=== PATIENT | female | born 1960 | race Caucasian/White ===

== ENCOUNTER 2017-11-24 20:08 | Emergency (ER) | payer OTHER ==
[2017-11-24 23:33] VITALS: BP 138/84; PULSE 62; RESP 18; TEMP 97.7; O2SAT 100
--- NOTE | 2017-11-25 00:21 | ED PDOC ---
Arrival/HPI - General Chief Complaint: Lower Extremity Problem/Injury Time Seen by Provider: 11/24/17 20:43 Historian: Patient - History of Present Illness Narrative History of Present Illness (Text): 11/25/17 00:28 57-year-old female presents today with left knee pain and right great toe pain status post injury. Patient states she tripped and fell landing on the left knee. Patient complaining of pain over the anterior aspect of the knee. Patient complaining of pain with range of motion of the knee. No medications taken for pain at home. Incident occurred prior to arrival. Patient denies hitting her head. No headache dizziness or weakness. No other complaints Past Medical History - Provider Review Nursing Documentation Reviewed: Yes - Travel History Have you recently traveled outside [place] w/in the past 3 mons?: No - Infectious Disease Hx of Infectious Diseases: None - Tetanus Immunization Tetanus Immunization: Unknown - Cardiac Hx Hypertension: Yes - Pulmonary Hx Respiratory Disorders: Yes Hx Asthma: Yes Other/Comment: flu-like symptoms - Neurological Hx Neurological Disorder: No - HEENT Hx HEENT Disorder: No - Renal Hx Renal Disorder: No - Endocrine/Metabolic Hx Endocrine Disorders: No - Hematological/Oncological Hx Blood Disorders: No - Integumentary Hx Dermatological Disorder: No - Musculoskeletal/Rheumatological Hx Falls: No - Gastrointestinal Hx Gastrointestinal Disorders: Yes Hx Diverticulitis: Yes - Genitourinary/Gynecological Hx Genitourinary Disorders: No - Psychiatric Hx Substance Use: No - Surgical History Hx Coronary Stent: Yes (1) - Anesthesia Hx Anesthesia: Yes Family/Social History - Physician Review Nursing Documentation Reviewed: Yes Family/Social History: Unknown Family HX Smoking Status: Never Smoked Hx Alcohol Use: No Hx Substance Use: No Allergies/Home Meds Allergies/Adverse Reactions: Allergies No Known Allergies Allergy (Verified 10/17/17 21:03) Home Medications: Home Meds Medication Instructions Recorded Confirmed Aspirin 81 mg PO DAILY 09/25/17 11/24/17 Atorvastatin [Lipitor] 40 mg PO HS 09/25/17 11/24/17 Lisinopril [Zestril] 2.5 mg PO DAILY 09/25/17 11/24/17 Metoprolol Tartrate 25 mg PO BID 09/25/17 11/24/17 Ticagrelor [Brilinta] 90 mg PO BID 09/25/17 11/24/17 Albuterol HFA [Ventolin HFA 90 2 puff INH Q6 PRN 10/18/17 11/24/17 mcg/actuation (8 g)] Review of Systems - Review of Systems Constitutional: absent: Fatigue, Fevers Respiratory: absent: SOB, Cough Cardiovascular: absent: Chest Pain, Palpitations Gastrointestinal: absent: Abdominal Pain, Nausea, Vomiting Musculoskeletal: Arthralgias. absent: Back Pain, Neck Pain Skin: absent: Rash, Pruritis Neurological: absent: Headache, Dizziness Psychiatric: absent: Anxiety, Depression Physical Exam Vital Signs Reviewed: Yes Vital Signs Temp Pulse Resp BP Pulse Ox 11/24/17 23:32 97.7 F 62 18 138/84 100 Temperature: Afebrile Blood Pressure: Normal Pulse: Regular Respiratory Rate: Normal Appearance: Positive for: Well-Appearing, Non-Toxic, Comfortable Pain Distress: None Mental Status: Positive for: Alert and Oriented X 3 - Systems Exam Head: Present: Atraumatic Neck: Present: Normal Range of Motion Respiratory/Chest: Present: Clear to Auscultation Cardiovascular: Present: Regular Rate and Rhythm Upper Extremity: Present: Normal Inspection, Normal ROM Lower Extremity: Present: Normal ROM, Tenderness (left knee; + ttp over anterior aspect of knee; full rom of knee. minimal swelling noted anterior aspect of knee; sensation and distal pulses intact; cap refill <2. ), Swelling , Other (right great toe; + ttp over anterior aspect of toe; full rom; no edema , no erythema; no ecchymosis. sensation and distal pulses intact. ) Neurological: Present: GCS=15, Speech Normal Skin: Present: Warm, Dry, Normal Color. No: Rashes Psychiatric: Present: Alert, Oriented x 3 Medical Decision Making ED Course and Treatment: 11/25/17 00:35 Patient nontoxic well-appearing in no distress with stable vital signs X-rays of the knee no fracture xray right great toe; no fracture tramadol po Patient placed in knee immobilizer. pt refused Crutches given for ambulation I discussed all results with patient advised to followup with the orthopedist for the next 2 days. Return if symptoms worsen persist or new symptoms develop i advised the patient that although the xrays show no fracture; there is still a possibility for ligamentous or tendon injury the patient must see the orthopedist for further evaluation. Patient verbalizes understanding of discharge instructions and need for immediate followup. all aspects of this case were discussed the attending of record. Impression: knee pain, contusion, toe tylenol every 4 hours as needed for pain tramadol; every 6 hours as needed for moderate to severe pain; may cause drowsiness. Rest, ice, compression, elevation Followup with the orthopedist within the next 2 days Followup with primary care physician within the next 2 days Return if symptoms worsen persist or if new symptoms develop - RAD Interpretation Radiology Orders: 11/24/17 21:31 KNEE WITH PATELLA LEFT 3 VIEW [RAD] Stat 11/24/17 21:32 FOOT RIGHT GREAT TOE ROUTINE [RAD] Stat - Medication Orders Current Medication Orders: Discontinued Medications Tramadol HCl (Ultram) 50 mg PO STAT STA Stop: 11/24/17 22:33 Last Admin: 11/24/17 22:50 Dose: 50 mg MAR Pain Assessment Document 11/24/17 22:50 ADELINA (Rec: 11/24/17 22:50 ADELINA [id number]) Pain Reassessment Is this a pain reassessment? No Disposition/Present on Arrival - Present on Arrival Any Indicators Present on Arrival: No History of DVT/PE: No History of Uncontrolled Diabetes: No Urinary Catheter: No History of Decub. Ulcer: No History Surgical Site Infection Following: None - Disposition Have Diagnosis and Disposition been Completed?: Yes Diagnosis: Knee pain, Contusion, toe Disposition: HOME/ ROUTINE Disposition Time: 00:16 Patient Plan: Discharge Condition: GOOD Discharge Instructions (ExitCare): Knee Pain (DC), Toe Injury (DC) Additional Instructions: tylenol every 4 hours as needed for pain tramadol; 1 tablet every 6 hours as needed for moderate to severe pain; may cause drowsiness Rest, ice, compression, elevation Use crutches for ambulation Followup with the orthopedist within the next 2 days Followup with primary care physician within the next 2 days Return if symptoms worsen persist or if new symptoms develop Prescriptions: traMADol [Ultram] 50 mg PO Q6H PRN #6 tab PRN Reason: moderate to severe pain Referrals: Dae Castro MD [Primary Care Provider] - Follow up with primary Raleigh Wilson DO [Staff Provider] - Follow up with primary Forms: [facility] (Congolese), WORK NOTE
--- NOTE | 2017-11-25 08:43 | RAD ---
PROCEDURE: Left knee dated 11/24/2017 HISTORY: Pain. COMPARISON: None. FINDINGS: BONES: No evidence of acute displaced fracture nor dislocation. Osseous structures intact. No obvious cortical destructive changes. JOINTS: Joint spaces preserved. No significant osteoarthritis. JOINT EFFUSION: None. OTHER FINDINGS: None. IMPRESSION: No evidence of acute displaced fracture nor dislocation.
--- NOTE | 2017-11-25 08:47 | RAD ---
PROCEDURE: Radiographs of the right great toe. TECHNIQUE:: AP radiograph of the right foot, with oblique and lateral view of the right great toe. COMPARISON: None. FINDINGS: BONES: No evidence of acute displaced fracture nor dislocation. The osseous structures intact. . Small posterior and tiny plantar surface calcaneal enthesophyte formation. JOINTS: Slight hammertoe deformity right 2nd and 3rd toes. Joint spaces relatively preserved. No significant osteoarthritis SOFT TISSUES: Normal. OTHER FINDINGS: None. IMPRESSION: No definitive radiographic evidence of acute displaced fracture nor dislocation. If symptoms persist or occult fracture suspected clinically recommend repeat radiographs in 7-10 days as most fractures should become radiographically evident in this timeframe.
== END 2017-11-25 00:21 | disposition home or self-care (01) ==
LOC: ED 20:08
DX: M25.562 Pain in left knee (principal); S90.111A Contusion of right great toe without damage to nail, initial encounter; W01.0XXA Fall on same level from slipping, tripping and stumbling without subsequent striking against object, initial encounter; I10 Essential (primary) hypertension

== ENCOUNTER 2018-11-25 20:11 | Observation (INO) | payer OTHER ==
--- NOTE | 2018-11-25 20:34 | ED PDOC ---
Arrival/HPI - General Chief Complaint: Chest Pain Time Seen by Provider: 11/25/18 20:15 Historian: Patient - History of Present Illness Narrative History of Present Illness (Text): 11/25/18 20:33 58 year old female, whose past medical history includes previous OH s/p stents, HTN and hyperlipidemia presents to the emergency department complaining of left- sided chest pain that radiates down to the left arm and left hand that began yesterday. Patient describes the chest pain as a dull-like sensation and describes the arm pain as a "funny-feeling". Patient reports she last took her Aspirin at 3PM. Patient denies any history of fall or trauma. Patient is not a smoker. Patient denies any fever, chills, shortness of breath, nausea, vomiting, diarrhea, urinary symptoms, back pain, neck pain, headache, dizziness, or any other complaints. PMD: Erik Torres Time/Duration: 24 hours Symptom Onset: Sudden Symptom Course: Unchanged Activities at Onset: Light Context: Home Past Medical History - Provider Review Nursing Documentation Reviewed: Yes - Infectious Disease Hx of Infectious Diseases: None - Tetanus Immunization Tetanus Immunization: Unknown - Cardiac Hx Cardiac Disorders: Yes Hx OH: Yes Hx Hypertension: Yes - Pulmonary Hx Respiratory Disorders: Yes Hx Asthma: Yes - Neurological Hx Neurological Disorder: No - HEENT Hx HEENT Disorder: No - Renal Hx Renal Disorder: No - Endocrine/Metabolic Hx Endocrine Disorders: No - Hematological/Oncological Hx Blood Disorders: No - Integumentary Hx Dermatological Disorder: No - Musculoskeletal/Rheumatological Hx Musculoskeletal Disorders: No - Gastrointestinal Hx Gastrointestinal Disorders: Yes Hx Diverticulitis: Yes - Genitourinary/Gynecological Hx Genitourinary Disorders: No - Psychiatric Hx Psychophysiologic Disorder: No Hx Substance Use: No - Surgical History Hx Coronary Stent: Yes (1) - Anesthesia Hx Anesthesia: Yes Hx Anesthesia Reactions: No Family/Social History - Physician Review Nursing Documentation Reviewed: Yes Family/Social History: No Known Family HX Smoking Status: Never Smoked Hx Alcohol Use: Yes Hx Substance Use: No Allergies/Home Meds Allergies/Adverse Reactions: Allergies No Known Allergies Allergy (Verified 11/25/18 20:26) Home Medications: Home Meds Medication Instructions Recorded Confirmed Aspirin 81 mg PO DAILY 09/25/17 11/25/18 Lisinopril [Zestril] 2.5 mg PO DAILY 09/25/17 11/25/18 Metoprolol Tartrate 25 mg PO BID 09/25/17 11/25/18 Review of Systems - Physician Review All systems were reviewed & negative as marked: Yes - Review of Systems Constitutional: absent: Fevers, Other (chills) Respiratory: absent: SOB Cardiovascular: Chest Pain (left-sided ) Gastrointestinal: absent: Diarrhea, Nausea, Vomiting Genitourinary Female: absent: Dysuria, Frequency, Hematuria Musculoskeletal: Other (left-sided arm pain radiates to left hand). absent: Back Pain, Neck Pain Neurological: absent: Headache, Dizziness Physical Exam Vital Signs Reviewed: Yes Vital Signs Temp Pulse Resp BP Pulse Ox 11/25/18 20:23 98.1 F 94 H 19 117/83 99 Temperature: Afebrile Blood Pressure: Normal Pulse: Regular Respiratory Rate: Normal Appearance: Positive for: Well-Appearing, Non-Toxic, Comfortable Pain Distress: None Mental Status: Positive for: Alert and Oriented X 3 - Systems Exam Head: Present: Atraumatic, Normocephalic Pupils: Present: PERRL Extroacular Muscles: Present: EOMI Conjunctiva: Present: Normal Mouth: Present: Moist Mucous Membranes Neck: Present: Normal Range of Motion Respiratory/Chest: Present: Clear to Auscultation, Good Air Exchange. No: Respiratory Distress, Accessory Muscle Use Cardiovascular: Present: Regular Rate and Rhythm, Normal S1, S2. No: Murmurs Abdomen: No: Tenderness, Distention, Peritoneal Signs Back: Present: Normal Inspection Upper Extremity: Present: Normal Inspection. No: Cyanosis, Edema Lower Extremity: Present: Normal Inspection. No: Edema Neurological: Present: GCS=15, Speech Normal Skin: Present: Warm, Dry, Normal Color. No: Rashes Psychiatric: Present: Alert, Oriented x 3, Normal Insight, Normal Concentration Medical Decision Making ED Course and Treatment: kayla alejandro acs 11/25/18 20:33 Impression: 58 year old female presents complaining of dull left-sided chest pain that radiates down to the left arm and left arm. Patient describes the pain as a "funny feeling". Plan: -- EKG -- Labs -- Chest X-ray -- Urinalysis -- Reassess and disposition Prior Visits: Notes and results from previous visits were reviewed. Progress Notes: EKG shows NSR at [address]/T wave changes. Interpreted by me. CXR Impression: As read by me, No active disease. 11/25/18 22:19 Case discussed with nurses medical assistants phlebotomists and Dr. Castellanos who is aware and agrees with the plan. Accepts patient into hospitalist service. 11/26/18 01:24 h/ o of cad. accepted by dr castellanos (admits for harry torres). - Lab Interpretations I have reviewed the lab results: Yes - RAD Interpretation Radiology Orders: 11/25/18 20:32 CHEST PORTABLE [RAD] Stat Manager Engine: Radiologist - EKG Interpretation Interpreted by ED Physician: Yes Type: 12 lead EKG - Scribe Statement The provider has reviewed the documentation as recorded by the Jorge Luis Provider Scribe Attestation: All medical record entries made by the Audieibnehemias were at my direction and personally dictated by me. I have reviewed the chart and agree that the record accurately reflects my personal performance of the history, physical exam, medical decision making, and the department course for this patient. I have also personally directed, reviewed, and agree with the discharge instructions and disposition. Disposition/Present on Arrival - Present on Arrival Any Indicators Present on Arrival: No History of DVT/PE: No History of Uncontrolled Diabetes: No Urinary Catheter: No History of Decub. Ulcer: No History Surgical Site Infection Following: None - Disposition Have Diagnosis and Disposition been Completed?: Yes Diagnosis: Chest pain Disposition: HOSPITALIZED Disposition Time: 20:00 Condition: STABLE
[2018-11-25 20:46] LABS: BASO # 0.04 K/mm3 (0.0-2.0); BASO % 0.3 % (0.0-3.0); EOS # 0.8 (0.0-0.7); EOS % 6.5 % (1.5-5.0); HEMOGLOBIN 13.2 g/dL (12.0-16.0); LYMPH # 4.9 (1.2-3.4); LYMPH % 40.1 % (22.0-35.0); MEAN CELL VOLUME 89.9 fl (80.0-105.0); MEAN CORPUSCULAR HEMOGLOBIN 31.1 pg (25.0-35.0); MEAN CORPUSCULAR HGB CONC 34.6 g/dl (31.0-37.0); RBC 4.25 10^6/uL (3.5-6.1); RED CELL DISTRIBUTION WIDTH 16.5 % (11.5-14.5); WHITE BLOOD COUNT 12.3 10^3/uL (4.5-11.0)
[2018-11-25 20:48] VITALS: BMI 36.3
[2018-11-25 20:55] LABS: INR 1.01; PARTIAL THROMBOPLASTIN TIME 27.5 Seconds (26.9-38.3); PROTHROMBIN TIME 11.2 SECONDS (9.4-12.5)
[2018-11-25 22:59] LABS: ALB/GLOB RATIO 1.4 (1.1-1.8); ALBUMIN 4.2 g/dL (3.0-4.8); ALT/SGPT 31 U/L (7-56); AST/SGOT 47 U/L (14-36); BLOOD UREA NITROGEN 13 mg/dL (7-21); CALCIUM 9.7 mg/dL (8.4-10.5); GFR NON-AFRICAN AMERICAN > 60
[2018-11-25 23:14] LABS: TROPONIN I < 0.01 ng/mL
[2018-11-25 23:35] LABS: URINE BILIRUBIN NEGATIVE (NEGATIVE); URINE BLOOD NEGATIVE (NEGATIVE); URINE GLUCOSE (UA) NEGATIVE (NEGATIVE); URINE LEUKOCYTE ESTERASE NEGATIVE Leu/uL (NEGATIVE); URINE PROTEIN NEGATIVE mg/dL (<30 mg/dL); URINE UROBILINOGEN 0.2 E.U./dL (<1 E.U./dL)
[2018-11-25 23:37] LABS: URINE APPEARANCE CLEAR (CLEAR); URINE COLOR YELLOW (YELLOW)
--- NOTE | 2018-11-26 00:25 | CP.PCM.HP ---
<Elizabeth Martínez - Last Filed: 11/26/18 02:05> History of Present Illness - History of Present Illness History of Present Illness: PGY1 History and Physical Exam Note for Dr. Castellanos Patient is a 58-year-old F with PMH significant for previous LA s/p stents CAD, HTN and hyperlipidemia who presents to [facility] with a cc of chest pain. Patient says the pain started while she was at work Friday evening and that it lasted 10 minutes. Patient localized the pain to her left ARM and also localized to her left chest. Patient qualifies the pain as "dull" and rates the pain as 9/10. Patient denies provoking/alleviating factors. Patient took her daily ASA 81mg x2 doses earlier today. Patient currently denies chest pain. Patient otherwise denies headache, dizziness, blurred vision, abdominal pain, shortness of breath, numbness/tingling in extremities, dysuria, hematuria, diarrhea, and/or fever/chills. PMH: previous LA s/p stents CAD, HTN and hyperlipidemia, Asthma PSH: cath with stent placement, hysterectomy Family Hx: Unknown Social Hx: Patient denies ETOH, tobacco use, and/or recreational drug use Medications: Plavix 75mg po daily, metoprolol 25mg po daily, ASA 81mg po daily, lisinopril 10mg po daily, Atorvastatin, Albuterol inhaler PRN Allergies: NKDA PMD: Dr. Chavez Castro Present on Admission - Present on Admission Any Indicators Present on Admission: No History of DVT/PE: No History of Uncontrolled Diabetes: No Urinary Catheter: No Decubitus Ulcer Present: No Review of Systems - Review of Systems All systems: reviewed and no additional remarkable complaints except (as per HPI) Past Patient History - Infectious Disease Hx of Infectious Diseases: None - Tetanus Immunizations Tetanus Immunization: Unknown - Past Medical History & Family History Past Medical History?: Yes - Past Social History Smoking Status: Never Smoked - CARDIAC Hx Cardiac Disorders: Yes Hx Heart Attack: Yes Hx Hypertension: Yes - PULMONARY Hx Respiratory Disorders: Yes Hx Asthma: Yes - NEUROLOGICAL Hx Neurological Disorder: No - HEENT Hx HEENT Problems: No - RENAL Hx Chronic Kidney Disease: No - ENDOCRINE/METABOLIC Hx Endocrine Disorders: No - HEMATOLOGICAL/ONCOLOGICAL Hx Blood Disorders: No - INTEGUMENTARY Hx Dermatological Problems: No - MUSCULOSKELETAL/RHEUMATOLOGICAL Hx Musculoskeletal Disorders: No - GASTROINTESTINAL Hx Gastrointestinal Disorders: Yes Hx Diverticulitis: Yes - GENITOURINARY/GYNECOLOGICAL Hx Genitourinary Disorders: No - PSYCHIATRIC Hx Psychophysiologic Disorder: No Hx Substance Use: No - SURGICAL HISTORY Hx Coronary Stent: Yes (1) - ANESTHESIA Hx Anesthesia: Yes Hx Anesthesia Reactions: No Meds Allergies/Adverse Reactions: Allergies Allergy/AdvReac Type Severity Reaction Status Date / Time No Known Allergies Allergy Verified 11/26/18 11:39 Physical Exam - Constitutional Appears: Non-toxic, No Acute Distress - Head Exam Head Exam: ATRAUMATIC, NORMAL INSPECTION, NORMOCEPHALIC - Eye Exam Eye Exam: EOMI, Normal appearance, PERRL Pupil Exam: NORMAL ACCOMODATION - ENT Exam ENT Exam: Mucous Membranes Moist, Normal Exam - Neck Exam Neck exam: Positive for: Normal Inspection - Respiratory Exam Respiratory Exam: Clear to Auscultation Bilateral, NORMAL BREATHING PATTERN. absent: Accessory Muscle Use, Chest Wall Tenderness, Prolonged Expiratory Phase, Rales, Rhonchi, Wheezes, Respiratory Distress, Stridor - Cardiovascular Exam Cardiovascular Exam: REGULAR RHYTHM, +S1, +S2. absent: Bradycardia, Diastolic murmur, Gallop, Irregular Rhythm, JVD, Rubs, +S4, Systolic Murmur - GI/Abdominal Exam GI & Abdominal Exam: Normal Bowel Sounds, Soft. absent: Tenderness - Extremities Exam Extremities exam: Positive for: full ROM, normal capillary refill, normal inspection. Negative for: calf tenderness, pedal edema, tenderness - Back Exam Back exam: NORMAL INSPECTION - Neurological Exam Neurological exam: Alert, CN II-XII Intact, Oriented x3 - Psychiatric Exam Psychiatric exam: Normal Affect, Normal Mood - Skin Skin Exam: Dry, Intact, Normal Color, Warm Results - Vital Signs Recent Vital Signs: Last Vital Signs Temp 98.1 F 11/25/18 20:23 Pulse 94 H 11/25/18 20:23 Resp 19 11/25/18 20:23 BP 117/83 11/25/18 20:23 Pulse Ox 99 11/25/18 20:23 - Labs Result Diagrams: 11/25/18 20:36 11/25/18 22:00 Labs: Laboratory Results - last 24 hr 11/25/18 11/25/18 11/25/18 20:36 20:36 22:00 WBC 12.3 H RBC 4.25 Hgb 13.2 Hct 38.2 MCV 89.9 MCH 31.1 MCHC 34.6 RDW 16.5 H Plt Count 271 MPV 11.0 Neut % (Auto) 45.1 L Lymph % (Auto) 40.1 H [place] % (Auto) 8.0 H Eos % (Auto) 6.5 H Baso % (Auto) 0.3 Lymph # (Auto) 4.9 H [place] # (Auto) 1.0 H Eos # (Auto) 0.8 H Baso # (Auto) 0.04 Absolute Neuts (auto) 5.54 PT 11.2 INR 1.01 APTT 27.5 Sodium 139 Potassium 4.0 Chloride 108 H Carbon Dioxide 23 Anion Gap 12 BUN 13 Creatinine 0.6 L Est GFR ( Amer) > 60 Est GFR (Non-Af Amer) > 60 Random Glucose 88 Calcium 9.7 Magnesium 1.8 Total Bilirubin 1.5 H AST 47 H D ALT 31 Alkaline Phosphatase 82 Lactate Dehydrogenase 549 Total Creatine Kinase 124 Troponin I < 0.01 Total Protein 7.4 Albumin 4.2 Globulin 3.1 Albumin/Globulin Ratio 1.4 Urine Color Urine Appearance Urine pH Ur Specific [place] Urine Protein Urine Glucose (UA) Urine Ketones Urine Blood Urine Nitrate Urine Bilirubin Urine Urobilinogen Ur Leukocyte Esterase 11/25/18 23:15 WBC RBC Hgb Hct MCV MCH MCHC RDW Plt Count MPV Neut % (Auto) Lymph % (Auto) [place] % (Auto) Eos % (Auto) Baso % (Auto) Lymph # (Auto) [place] # (Auto) Eos # (Auto) Baso # (Auto) Absolute Neuts (auto) PT INR APTT Sodium Potassium Chloride Carbon Dioxide Anion Gap BUN Creatinine Est GFR ( Amer) Est GFR (Non-Af Amer) Random Glucose Calcium Magnesium Total Bilirubin AST ALT Alkaline Phosphatase Lactate Dehydrogenase Total Creatine Kinase Troponin I Total Protein Albumin Globulin Albumin/Globulin Ratio Urine Color Yellow Urine Appearance Clear Urine pH 6.0 Ur Specific [place] 1.010 Urine Protein Negative Urine Glucose (UA) Negative Urine Ketones Negative Urine Blood Negative Urine Nitrate Negative Urine Bilirubin Negative Urine Urobilinogen 0.2 Ur Leukocyte Esterase Negative Assessment & Plan - Assessment and Plan (Free Text) Assessment: Chest Pain in the setting of pr Rule-Out ACS - Troponin I negative - EKG shows NSR at [address]/T wave changes - Repeat Troponin Q6 x2 - Repeat EKG Q6 x2 - Cardiology consulted (Dr. Aragon); recommendations appreciated - F/U CXR official report - F/U lipid panel, TSH, CMP, Mg, Phos in AM - Continue home meds - Nitro SL PRN max x3 doses - Toradol 15mg IVP x 1 dose - Monitor in telemetry Mild leukocytosis - WBC 12.3 - afebrile - likely reactive - monitor CBC in AM Mild Transaminitis - AST 47 - Avoid hepatotoxic agents - Monitor CMP in AM PPx: - DVT: Lovenox 40 SC daily - GI: Protonix 40mg PO daily Discussed with Dr. Castellanos <Brice Castellanos - Last Filed: 11/26/18 19:29> Results - Vital Signs Recent Vital Signs: Last Vital Signs Temp 98.3 F 11/26/18 13:37 Pulse 85 11/26/18 18:00 Resp 18 11/26/18 14:00 BP 116/44 L 11/26/18 13:37 Pulse Ox 98 11/26/18 13:37 - Labs Result Diagrams: 11/26/18 04:00 11/26/18 04:00 Labs: Laboratory Results - last 24 hr 11/25/18 11/25/18 11/25/18 20:36 20:36 22:00 WBC 12.3 H RBC 4.25 Hgb 13.2 Hct 38.2 MCV 89.9 MCH 31.1 MCHC 34.6 RDW 16.5 H Plt Count 271 MPV 11.0 Neut % (Auto) 45.1 L Lymph % (Auto) 40.1 H [place] % (Auto) 8.0 H Eos % (Auto) 6.5 H Baso % (Auto) 0.3 Lymph # (Auto) 4.9 H [place] # (Auto) 1.0 H Eos # (Auto) 0.8 H Baso # (Auto) 0.04 Absolute Neuts (auto) 5.54 PT 11.2 INR 1.01 APTT 27.5 Sodium 139 Potassium 4.0 Chloride 108 H Carbon Dioxide 23 Anion Gap 12 BUN 13 Creatinine 0.6 L Est GFR ( Amer) > 60 Est GFR (Non-Af Amer) > 60 Random Glucose 88 Calcium 9.7 Phosphorus Magnesium 1.8 Total Bilirubin 1.5 H AST 47 H D ALT 31 Alkaline Phosphatase 82 Lactate Dehydrogenase 549 Total Creatine Kinase 124 Troponin I < 0.01 Total Protein 7.4 Albumin 4.2 Globulin 3.1 Albumin/Globulin Ratio 1.4 Triglycerides Cholesterol LDL Cholesterol Direct HDL Cholesterol TSH 3rd Generation Urine Color Urine Appearance Urine pH Ur Specific [place] Urine Protein Urine Glucose (UA) Urine Ketones Urine Blood Urine Nitrate Urine Bilirubin Urine Urobilinogen Ur Leukocyte Esterase 11/25/18 11/25/18 11/26/18 22:00 23:15 04:00 WBC RBC Hgb Hct MCV MCH MCHC RDW Plt Count MPV Neut % (Auto) Lymph % (Auto) [place] % (Auto) Eos % (Auto) Baso % (Auto) Lymph # (Auto) [place] # (Auto) Eos # (Auto) Baso # (Auto) Absolute Neuts (auto) PT INR APTT Sodium 141 Potassium 3.9 Chloride 107 Carbon Dioxide 24 Anion Gap 14 BUN 13 Creatinine 0.7 Est GFR ( Amer) > 60 Est GFR (Non-Af Amer) > 60 Random Glucose 90 Calcium 9.2 Phosphorus 4.4 Magnesium 1.8 Total Bilirubin 1.4 H AST 32 ALT 27 Alkaline Phosphatase 71 Lactate Dehydrogenase Total Creatine Kinase Troponin I < 0.01 Total Protein 6.8 Albumin 3.9 Globulin 2.9 Albumin/Globulin Ratio 1.4 Triglycerides 108 Cholesterol 143 LDL Cholesterol Direct 70 HDL Cholesterol 53 TSH 3rd Generation 1.31 Urine Color Yellow Urine Appearance Clear Urine pH 6.0 Ur Specific [place] 1.010 Urine Protein Negative Urine Glucose (UA) Negative Urine Ketones Negative Urine Blood Negative Urine Nitrate Negative Urine Bilirubin Negative Urine Urobilinogen 0.2 Ur Leukocyte Esterase Negative 11/26/18 11/26/18 04:00 09:45 WBC 9.7 D RBC 4.17 Hgb 12.8 Hct 37.1 MCV 89.0 MCH 30.7 MCHC 34.5 RDW 16.0 H Plt Count 251 MPV 11.1 H Neut % (Auto) 40.1 L Lymph % (Auto) 43.7 H [place] % (Auto) 7.9 H Eos % (Auto) 8.0 H Baso % (Auto) 0.3 Lymph # (Auto) 4.2 H [place] # (Auto) 0.8 H Eos # (Auto) 0.8 H Baso # (Auto) 0.03 Absolute Neuts (auto) 3.89 PT INR APTT Sodium Potassium Chloride Carbon Dioxide Anion Gap BUN Creatinine Est GFR ( Amer) Est GFR (Non-Af Amer) Random Glucose Calcium Phosphorus Magnesium Total Bilirubin AST ALT Alkaline Phosphatase Lactate Dehydrogenase Total Creatine Kinase Troponin I < 0.01 Total Protein Albumin Globulin Albumin/Globulin Ratio Triglycerides Cholesterol LDL Cholesterol Direct HDL Cholesterol TSH 3rd Generation Urine Color Urine Appearance Urine pH Ur Specific [place] Urine Protein Urine Glucose (UA) Urine Ketones Urine Blood Urine Nitrate Urine Bilirubin Urine Urobilinogen Ur Leukocyte Esterase Attending/Attestation - Attestation I have personally seen and examined this patient.: Yes I have fully participated in the care of the patient.: Yes I have reviewed all pertinent clinical information: Yes Notes (Text): 11/26/18 19:29 Seen and examined. Discussed with resident. A&P as above
[2018-11-26 04:26] LABS: LDL CHOLESTEROL 70 mg/dL (0-129); TROPONIN I < 0.01 ng/mL
[2018-11-26 04:28] LABS: ALB/GLOB RATIO 1.4 (1.1-1.8); ALBUMIN 3.9 g/dL (3.0-4.8); ALT/SGPT 27 U/L (7-56); AST/SGOT 32 U/L (14-36); BLOOD UREA NITROGEN 13 mg/dL (7-21); CALCIUM 9.2 mg/dL (8.4-10.5); GFR NON-AFRICAN AMERICAN > 60; HDL CHOLESTEROL 53 mg/dL (29-60)
[2018-11-26 04:41] LABS: BASO # 0.03 K/mm3 (0.0-2.0); BASO % 0.3 % (0.0-3.0); EOS # 0.8 (0.0-0.7); HEMOGLOBIN 12.8 g/dL (12.0-16.0); LYMPH # 4.2 (1.2-3.4); LYMPH % 43.7 % (22.0-35.0); MEAN CORPUSCULAR HEMOGLOBIN 30.7 pg (25.0-35.0); MEAN CORPUSCULAR HGB CONC 34.5 g/dl (31.0-37.0); MEAN PLATELET VOLUME 11.1 fl (7.0-11.0); MONO # 0.8 (0.1-0.6); MONO % 7.9 % (1.0-6.0); RBC 4.17 10^6/uL (3.5-6.1); WHITE BLOOD COUNT 9.7 10^3/uL (4.5-11.0)
[2018-11-26] MEDS: Pantoprazole 40 mg EC Tab PO SCH ×2 (06:50→09:51)
--- NOTE | 2018-11-26 09:23 | CARD ---
APPROVED REPORT Date of service: 11/26/2018 EKG Measurement Heart [id number] <Conclusion> Normal sinus rhythm Normal ECG
--- NOTE | 2018-11-26 09:32 | CARD ---
APPROVED REPORT Date of service: 11/25/2018 EKG Measurement Heart [id number] <Conclusion> Normal sinus rhythm Normal ECG
[2018-11-26] MEDS ORDERED: Enoxaparin 40 mg Syringe SC SCH (10:00)
--- NOTE | 2018-11-26 12:19 | RAD ---
Date of service: 11/25/2018 HISTORY: cp COMPARISON: No prior. TECHNIQUE: 1 view obtained. FINDINGS: LUNGS: No active pulmonary disease. PLEURA: No significant pleural effusion identified, no pneumothorax apparent. CARDIOVASCULAR: No aortic atherosclerotic calcification present. Normal cardiac size. No pulmonary vascular congestion. OSSEOUS STRUCTURES: No significant abnormalities. VISUALIZED UPPER ABDOMEN: Normal. OTHER FINDINGS: None. IMPRESSION: No active disease.
[2018-11-26] MEDS ORDERED: MethylPREDNISolone 40 mg Vial IVP STA (12:26)
--- NOTE | 2018-11-26 14:09 | CON ---
DATE OF CONSULTATION: 11/26/2018 CARDIOLOGY CONSULTATION HISTORY: The patient is a 58-year-old woman, who presents with substernal chest discomfort with radiation down the left arm. The patient's past medical history is notable for hypertension, hypercholesterolemia. In addition, she was treated with two stents in the past at [facility]. Her past medical history includes asthma, for which she has taken bronchodilators. She was given Plavix in the emergency room, and she has developed (wield) in her arm and behind her neck. No diabetes mellitus noted. SOCIAL HISTORY: The patient does not smoke. REVIEW OF SYSTEMS: Fourteen-point review of systems is reviewed in detail. No other cardiac symptoms are noted. PHYSICAL EXAMINATION: VITAL SIGNS: Blood pressure 110/66, the heart rate is in the 60s. NECK: Negative JVD. LUNGS: Bilateral wheezing. HEART: Revealed S1, S2. EXTREMITIES: Without edema. LABORATORY DATA: Laboratories revealed an EKG that showed no acute changes. Hemoglobin is 12.8. Chemistries, BUN and creatinine are unremarkable. Troponins are negative x3. IMPRESSION: 1. Recurrence of angina at rest. 2. No evidence for acute coronary syndrome. 3. History of percutaneous transluminal coronary angioplasty and stent a [id number] ago at [facility] 4. Coronary artery disease. 5. Hypertension. 6. Asthma. 7. PROBABLE ALLERGY TO PLAVIX. PLAN: Given these findings, we will start the patient on Brilinta now, and which she has shown to tolerate. We will give the patient IV steroids as well as bronchodilators. We will discontinue her Lopressor. I have offered the patient diagnostic options of stress test versus a cardiac catheterization. Due to the patient's ongoing symptoms at rest, we will proceed with cardiac catheterization in the morning. Wyatt Aragon MD
[2018-11-26] MEDS ORDERED: Pneumococcal 23-Valent Vaccine IM ONE (14:25)
--- NOTE | 2018-11-26 19:06 | CARD ---
APPROVED REPORT Date of service: 11/26/2018 EKG Measurement Heart [id number] <Conclusion> Normal sinus rhythm Normal ECG
[2018-11-27] MEDS ORDERED: MethylPREDNISolone 40 mg Vial IVP ONE (06:00)
[2018-11-27] MEDS ORDERED: Iodixanol 320 MG/ML 200 ML BOTTLE IV ONE (06:55)
[2018-11-27] MEDS ORDERED: Iohexol 350mgl/ml 50 ML ONE (06:55)
[2018-11-27] MEDS ORDERED: Lidocaine PF 2% (5 ml) Inj (For Cardiac Arrhy) ONE ×2 (06:55→08:04)
[2018-11-27] MEDS ORDERED: Iodixanol 320 MG/ML 100 ML BOTTLE IV ONE (06:55)
[2018-11-27] MEDS ORDERED: Nitroglycerin 50mg in D5W 0 MG/0 ML BOTTLE IV ONE (06:56)
--- NOTE | 2018-11-27 07:15 | CP.PCM.PN ---
Subjective - Date & Time of Evaluation Date of Evaluation: 11/27/18 Time of Evaluation: 07:15 Objective - Vital Signs/Intake and Output Vital Signs (last 24 hours): Temp Pulse Resp BP Pulse Ox 98.0 F 77 18 129/84 96 11/27/18 00:01 11/27/18 06:45 11/27/18 00:01 11/27/18 06:45 11/27/18 00:01 Intake and Output: 11/27/18 11/27/18 06:59 18:59 Intake Total 0 Balance 0 - Medications Medications: Current Medications Acetaminophen (Tylenol 325mg Tab) 650 mg PO Q6H PRN PRN Reason: Pain, Mild (1-3) Last Admin: 11/26/18 17:11 Dose: 650 mg Aspirin (Aspirin Chewable) 81 mg PO DAILY [facility] Last Admin: 11/27/18 06:45 Dose: 81 mg Enoxaparin Sodium (Lovenox) 40 mg SC DAILY [facility]; Protocol Last Admin: 11/26/18 09:50 Dose: 40 mg Lisinopril (Zestril) 10 mg PO DAILY [facility] Last Admin: 11/27/18 06:45 Dose: 10 mg Pantoprazole Sodium (Protonix Ec Tab) 40 mg PO 0600 [facility] Last Admin: 11/26/18 09:51 Dose: 40 mg Ticagrelor (Brilinta) 90 mg PO BID [facility] Last Admin: 11/27/18 06:47 Dose: 90 mg - Labs Labs: 11/26/18 04:00 11/26/18 04:00 PT 11.2 SECONDS (9.4-12.5) 11/25/18 20:36 INR 1.01 11/25/18 20:36 APTT 27.5 Seconds (26.9-38.3) 11/25/18 20:36
[2018-11-27] MEDS ORDERED: Midazolam 2 MG/2 ML VIAL ONE ×2 (07:53→07:57)
[2018-11-27] MEDS ORDERED: Sodium Chloride 0.9% 1,000 ML IV SCH (08:30)
--- NOTE | 2018-11-27 09:22 | CARDCATH ---
PROCEDURE DATE: 11/27/2018 HISTORY: The patient is a 58-year-old woman with documented coronary disease and a stent in the past who presents with recurrence of chest pain. The patient has a history of asthma, hypertension as well as hypercholesterolemia. Because of this, cardiac catheterization was recommended. PROCEDURE: Left heart catheterization with coronary arteriography and left ventriculogram, supra-aortic valvular injection. The right femoral artery was cannulated with 6-Macedonian sheath. There were no complications. I performed moderate sedation which included the presence of an independent trained observer that assisted in monitoring the patient's level of consciousness and physiologic status. After administration of Versed and fentanyl, my intra service time was 30 minutes. Findings on catheterization revealed a left ventricle that contracted normally. Estimated ejection fraction of 60%. The patient had a right-dominant circulation. The RCA revealed intimal irregularities without significant stenoses. The left main artery is unremarkable. The LAD revealed a patent stent in the midportion. In the proximal portion of the LAD, there is a 50% stenosis noted. In the distal portion of the LAD there is a 50% stenosis noted. The circumflex artery and obtuse marginal branches were free of significant disease. Supra-aortic valvular injection revealed no aortic insufficiency. AngioSeal was used to close the femoral artery site. The patient tolerated the procedure well. IN SUMMARY: The procedure revealed a patent stent in the mid LAD with a long 50% stenosis in the proximal LAD as well as a 50% stenosis in the distal LAD consistent with single vessel CAD. LV function is normal. Given these findings, the patient's treatment should be a strict cardiac risk reduction program. We will discontinue her Brilinta. Exercise cholesterol controlling with weight loss would be appropriate. Wyatt Aragon MD
[2018-11-27] MEDS ORDERED: Albuterol-Ipratrop 3 mg / 0.5 (3 ml) UD IH ONE ×2 (10:39→14:30)
[2018-11-27] MEDS ORDERED: Albuterol-Ipratrop 3 mg / 0.5 (3 ml) UD IH SCH (11:30)
[2018-11-27] MEDS ORDERED: Calamine-Zinc Oxide Lotion (120 ml) TOP SCH (12:45)
[2018-11-27 17:03] VITALS: O2SAT 100
--- NOTE | 2018-11-27 17:13 | CP.PCM.DIS ---
<YudelkaLacho - Last Filed: 11/27/18 20:31> Provider - Provider Date of Admission: 11/25/18 23:33 Attending physician: Rosemarie Storm MD Consults: 11/26/18 01:26 Cardiology Consult Routine Comment: Consulting Provider: Wyatt Aragon Consulting Physician: Wyatt Aragon Reason for Consult: ACS rule-out; history of CAD s/p cath x2 stents in February 2017 11/26/18 14:25 Inpatient PRODUCT DEVELOPMENT ACTUARY Core Measures Referral Routine Comment: Physician Instructions: Reason For Exam: EVALUATION Nursing Referral for Wound Care Routine Comment: SML VESICULAR RASH UNDERSIDE OF LEFT ARM BURNING. Physician Instructions: Reason For Exam: EVALUATION Transition In Care/Readmission Reduction Routine Comment: Physician Instructions: Reason For Exam: EVALUATION 11/26/18 14:34 Nursing Referral for Wound Care Routine Comment: SMALL TINY CLUSTER OF VESICULAR RASH/L ARM Physician Instructions: Reason For Exam: EVALUATION Time Spent in preparation of Discharge (in minutes): 45 Diagnosis - Discharge Diagnosis (1) S/P cardiac cath Status: Resolved (2) Chest pain Status: Resolved (3) CAD (coronary artery disease) Status: Chronic (4) HTN (hypertension) Status: Chronic (5) Hyperlipidemia Status: Chronic (6) Asthma Status: Chronic Hospital Course - Lab Results Lab Results: Most Recent Lab Values WBC 9.7 10^3/uL (4.5-11.0) D 11/26/18 04:00 RBC 4.17 10^6/uL (3.5-6.1) 11/26/18 04:00 Hgb 12.8 g/dL (12.0-16.0) 11/26/18 04:00 Hct 37.1 % (36.0-48.0) 11/26/18 04:00 MCV 89.0 fl (80.0-105.0) 11/26/18 04:00 MCH 30.7 pg (25.0-35.0) 11/26/18 04:00 MCHC 34.5 g/dl (31.0-37.0) 11/26/18 04:00 RDW 16.0 % (11.5-14.5) H 11/26/18 04:00 Plt Count 251 10^3/uL (120.0-450.0) 11/26/18 04:00 MPV 11.1 fl (7.0-11.0) H 11/26/18 04:00 Neut % (Auto) 40.1 % (50.0-68.0) L 11/26/18 04:00 Lymph % (Auto) 43.7 % (22.0-35.0) H 11/26/18 04:00 [place] % (Auto) 7.9 % (1.0-6.0) H 11/26/18 04:00 Eos % (Auto) 8.0 % (1.5-5.0) H 11/26/18 04:00 Baso % (Auto) 0.3 % (0.0-3.0) 11/26/18 04:00 Lymph # (Auto) 4.2 (1.2-3.4) H 11/26/18 04:00 [place] # (Auto) 0.8 (0.1-0.6) H 11/26/18 04:00 Eos # (Auto) 0.8 (0.0-0.7) H 11/26/18 04:00 Baso # (Auto) 0.03 K/mm3 (0.0-2.0) 11/26/18 04:00 Absolute Neuts (auto) 3.89 (1.4-6.5) 11/26/18 04:00 PT 11.2 SECONDS (9.4-12.5) 11/25/18 20:36 INR 1.01 11/25/18 20:36 APTT 27.5 Seconds (26.9-38.3) 11/25/18 20:36 Sodium 141 mmol/L (132-148) 11/26/18 04:00 Potassium 3.9 mmol/L (3.6-5.0) 11/26/18 04:00 Chloride 107 mmol/L (98-107) 11/26/18 04:00 Carbon Dioxide 24 mmol/L (21-33) 11/26/18 04:00 Anion Gap 14 (10-20) 11/26/18 04:00 BUN 13 mg/dL (7-21) 11/26/18 04:00 Creatinine 0.7 mg/dl (0.7-1.2) 11/26/18 04:00 Est GFR ( Amer) > 60 11/26/18 04:00 Est GFR (Non-Af Amer) > 60 11/26/18 04:00 Random Glucose 90 mg/dL (70-110) 11/26/18 04:00 Calcium 9.2 mg/dL (8.4-10.5) 11/26/18 04:00 Phosphorus 4.4 mg/dL (2.5-4.5) 11/26/18 04:00 Magnesium 1.8 mg/dL (1.7-2.2) 11/26/18 04:00 Total Bilirubin 1.4 mg/dL (0.2-1.3) H 11/26/18 04:00 AST 32 U/L (14-36) 11/26/18 04:00 ALT 27 U/L (7-56) 11/26/18 04:00 Alkaline Phosphatase 71 U/L (38-126) 11/26/18 04:00 Lactate Dehydrogenase 549 U/L (333-699) 11/25/18 22:00 Total Creatine Kinase 124 U/L (35-230) 11/25/18 22:00 Troponin I < 0.01 ng/mL 11/26/18 09:45 Total Protein 6.8 g/dL (5.8-8.3) 11/26/18 04:00 Albumin 3.9 g/dL (3.0-4.8) 11/26/18 04:00 Globulin 2.9 gm/dL 11/26/18 04:00 Albumin/Globulin Ratio 1.4 (1.1-1.8) 11/26/18 04:00 Triglycerides 108 mg/dL (35-160) 11/26/18 04:00 Cholesterol 143 mg/dL (130-200) 11/26/18 04:00 LDL Cholesterol Direct 70 mg/dL (0-129) 11/26/18 04:00 HDL Cholesterol 53 mg/dL (29-60) 11/26/18 04:00 TSH 3rd Generation 1.31 mIU/mL (0.46-4.68) 11/25/18 22:00 Urine Color Yellow (YELLOW) 11/25/18 23:15 Urine Appearance Clear (CLEAR) 11/25/18 23:15 Urine pH 6.0 (4.7-8.0) 11/25/18 23:15 Ur Specific [place] 1.010 (1.005-1.035) 11/25/18 23:15 Urine Protein Negative mg/dL (<30 mg/dL) 11/25/18 23:15 Urine Glucose (UA) Negative mg/dL (NEGATIVE) 11/25/18 23:15 Urine Ketones Negative mg/dL (NEGATIVE) 11/25/18 23:15 Urine Blood Negative (NEGATIVE) 11/25/18 23:15 Urine Nitrate Negative (NEGATIVE) 11/25/18 23:15 Urine Bilirubin Negative (NEGATIVE) 11/25/18 23:15 Urine Urobilinogen 0.2 E.U./dL (<1 E.U./dL) 11/25/18 23:15 Ur Leukocyte Esterase Negative Christ/uL (NEGATIVE) 11/25/18 23:15 - Hospital Course Hospital Course: Patient is a 58-year-old F with PMH significant for previous [place] s/p stents CAD, HTN and hyperlipidemia who presents to [facility] with a cc of chest pain. Patient says the pain started while she was at work Friday evening and that it lasted 10 minutes. Patient localized the pain to her left ARM and also localized to her left chest. Patient qualifies the pain as "dull" and rates the pain as 9/10. In the course of her hospital stay, EKG shows NSR at [address]/T wave barnes es. Troponins were negative. Cardiology, Dr. Aragon was consulted and did a cardiac cath given patient's cardiac history. Cardiac cath showed patent stent in mid LAD, with 50% stenosis in proximal and distal LAD. He recommends that patient to be continued on medical management. Patient was instructed to follow up at Dr. Aragon's office. Patient was also treated with a rash 2/2 to posion nicolette with calamine lotion. Patient was instructed to hold her home Lopressor since she was hypotensive and was wheezing. Patient received 2 doses of duonebs for her wheezing prior to being discharge. Patient is medically stable for discharge. Discharge Exam - Additional Findings Additional findings: - Constitutional Appears: Non-toxic, No Acute Distress - Head Exam Head Exam: ATRAUMATIC, NORMAL INSPECTION, NORMOCEPHALIC - Eye Exam Eye Exam: EOMI, Normal appearance, PERRL Pupil Exam: NORMAL ACCOMODATION - ENT Exam ENT Exam: Mucous Membranes Moist, Normal Exam - Neck Exam Neck exam: Positive for: Normal Inspection - Respiratory Exam Respiratory Exam: Clear to Auscultation Bilateral, NORMAL BREATHING PATTERN. absent: Accessory Muscle Use, Chest Wall Tenderness, Prolonged Expiratory Phase, Rales, Rhonchi, Wheezes, Respiratory Distress, Stridor - Cardiovascular Exam Cardiovascular Exam: REGULAR RHYTHM, +S1, +S2. absent: Bradycardia, Diastolic murmur, Gallop, Irregular Rhythm, JVD, Rubs, +S4, Systolic Murmur - GI/Abdominal Exam GI & Abdominal Exam: Normal Bowel Sounds, Soft. absent: Tenderness - Extremities Exam Extremities exam: Positive for: full ROM, normal capillary refill, normal inspection. Negative for: calf tenderness, pedal edema, tenderness - Back Exam Back exam: NORMAL INSPECTION - Neurological Exam Neurological exam: Alert, CN II-XII Intact, Oriented x3 - Psychiatric Exam Psychiatric exam: Normal Affect, Normal Mood - Skin Skin Exam: Dry, Intact, Normal Color, Warm Discharge Plan - Follow Up Plan Condition: STABLE Disposition: HOME/ ROUTINE Instructions: Poison Nicolette, Heart Healthy Diet, Cardiac Catheterization (DC), Chest Pain (ED) Additional Instructions: - Hold home medication Metoprolol Tartrate since your blood pressure has been low and have been having some wheezing. Please follow up with your primary care doctor before starting this medication. - Apply Calamine lotion as needed to affected areas. - Resume all your other home medications as prescribed by your doctor. - Follow up with your primary care doctor in 2- 5 days. - Follow up with handbag parts cutter, Dr. Aragon in 1-2 weeks. - Return to the emergency room for newly concerning or worsening of symptoms. Remove right groin pressure dressing in the morning. Please follow the attached s/p cardiac catheterization and interventional procedure discharge instruction. Referrals: Dae Castro MD [Family Provider] - Wyatt Aragon MD [Staff Provider] - <Rosemarie Storm - Last Filed: 11/28/18 10:38> Provider - Provider Date of Admission: 11/25/18 23:33 Attending physician: Rosemarie Storm MD Consults: 11/26/18 01:26 Cardiology Consult Routine Comment: Consulting Provider: Wyatt Aragon Consulting Physician: Wyatt Aragon Reason for Consult: ACS rule-out; history of CAD s/p cath x2 stents in February 2017 11/26/18 14:25 Inpatient PRODUCT DEVELOPMENT ACTUARY Core Measures Referral Routine Comment: Physician Instructions: Reason For Exam: EVALUATION Nursing Referral for Wound Care Routine Comment: SML VESICULAR RASH UNDERSIDE OF LEFT ARM BURNING. Physician Instructions: Reason For Exam: EVALUATION Transition In Care/Readmission Reduction Routine Comment: Physician Instructions: Reason For Exam: EVALUATION 11/26/18 14:34 Nursing Referral for Wound Care Routine Comment: SMALL TINY CLUSTER OF VESICULAR RASH/L ARM Physician Instructions: Reason For Exam: EVALUATION Hospital Course - Lab Results Lab Results: Most Recent Lab Values WBC 9.7 10^3/uL (4.5-11.0) D 11/26/18 04:00 RBC 4.17 10^6/uL (3.5-6.1) 11/26/18 04:00 Hgb 12.8 g/dL (12.0-16.0) 11/26/18 04:00 Hct 37.1 % (36.0-48.0) 11/26/18 04:00 MCV 89.0 fl (80.0-105.0) 11/26/18 04:00 MCH 30.7 pg (25.0-35.0) 11/26/18 04:00 MCHC 34.5 g/dl (31.0-37.0) 11/26/18 04:00 RDW 16.0 % (11.5-14.5) H 11/26/18 04:00 Plt Count 251 10^3/uL (120.0-450.0) 11/26/18 04:00 MPV 11.1 fl (7.0-11.0) H 11/26/18 04:00 Neut % (Auto) 40.1 % (50.0-68.0) L 11/26/18 04:00 Lymph % (Auto) 43.7 % (22.0-35.0) H 11/26/18 04:00 [place] % (Auto) 7.9 % (1.0-6.0) H 11/26/18 04:00 Eos % (Auto) 8.0 % (1.5-5.0) H 11/26/18 04:00 Baso % (Auto) 0.3 % (0.0-3.0) 11/26/18 04:00 Lymph # (Auto) 4.2 (1.2-3.4) H 11/26/18 04:00 [place] # (Auto) 0.8 (0.1-0.6) H 11/26/18 04:00 Eos # (Auto) 0.8 (0.0-0.7) H 11/26/18 04:00 Baso # (Auto) 0.03 K/mm3 (0.0-2.0) 11/26/18 04:00 Absolute Neuts (auto) 3.89 (1.4-6.5) 11/26/18 04:00 PT 11.2 SECONDS (9.4-12.5) 11/25/18 20:36 INR 1.01 11/25/18 20:36 APTT 27.5 Seconds (26.9-38.3) 11/25/18 20:36 Sodium 141 mmol/L (132-148) 11/26/18 04:00 Potassium 3.9 mmol/L (3.6-5.0) 11/26/18 04:00 Chloride 107 mmol/L (98-107) 11/26/18 04:00 Carbon Dioxide 24 mmol/L (21-33) 11/26/18 04:00 Anion Gap 14 (10-20) 11/26/18 04:00 BUN 13 mg/dL (7-21) 11/26/18 04:00 Creatinine 0.7 mg/dl (0.7-1.2) 11/26/18 04:00 Est GFR ( Amer) > 60 11/26/18 04:00 Est GFR (Non-Af Amer) > 60 11/26/18 04:00 Random Glucose 90 mg/dL (70-110) 11/26/18 04:00 Calcium 9.2 mg/dL (8.4-10.5) 11/26/18 04:00 Phosphorus 4.4 mg/dL (2.5-4.5) 11/26/18 04:00 Magnesium 1.8 mg/dL (1.7-2.2) 11/26/18 04:00 Total Bilirubin 1.4 mg/dL (0.2-1.3) H 11/26/18 04:00 AST 32 U/L (14-36) 11/26/18 04:00 ALT 27 U/L (7-56) 11/26/18 04:00 Alkaline Phosphatase 71 U/L (38-126) 11/26/18 04:00 Lactate Dehydrogenase 549 U/L (333-699) 11/25/18 22:00 Total Creatine Kinase 124 U/L (35-230) 11/25/18 22:00 Troponin I < 0.01 ng/mL 11/26/18 09:45 Total Protein 6.8 g/dL (5.8-8.3) 11/26/18 04:00 Albumin 3.9 g/dL (3.0-4.8) 11/26/18 04:00 Globulin 2.9 gm/dL 11/26/18 04:00 Albumin/Globulin Ratio 1.4 (1.1-1.8) 11/26/18 04:00 Triglycerides 108 mg/dL (35-160) 11/26/18 04:00 Cholesterol 143 mg/dL (130-200) 11/26/18 04:00 LDL Cholesterol Direct 70 mg/dL (0-129) 11/26/18 04:00 HDL Cholesterol 53 mg/dL (29-60) 11/26/18 04:00 TSH 3rd Generation 1.31 mIU/mL (0.46-4.68) 11/25/18 22:00 Urine Color Yellow (YELLOW) 11/25/18 23:15 Urine Appearance Clear (CLEAR) 11/25/18 23:15 Urine pH 6.0 (4.7-8.0) 11/25/18 23:15 Ur Specific [place] 1.010 (1.005-1.035) 11/25/18 23:15 Urine Protein Negative mg/dL (<30 mg/dL) 11/25/18 23:15 Urine Glucose (UA) Negative mg/dL (NEGATIVE) 11/25/18 23:15 Urine Ketones Negative mg/dL (NEGATIVE) 11/25/18 23:15 Urine Blood Negative (NEGATIVE) 11/25/18 23:15 Urine Nitrate Negative (NEGATIVE) 11/25/18 23:15 Urine Bilirubin Negative (NEGATIVE) 11/25/18 23:15 Urine Urobilinogen 0.2 E.U./dL (<1 E.U./dL) 11/25/18 23:15 Ur Leukocyte Esterase Negative Christ/uL (NEGATIVE) 11/25/18 23:15 Attending/Attestation - Attestation I have personally seen and examined this patient.: Yes I have fully participated in the care of the patient.: Yes I have reviewed all pertinent clinical information, including history, physical exam and plan: Yes Notes (Text): 11/28/18 10:21 Patient was seen and examined with medical management specialist. 58 yrs old female with PMH of CAD,sp Cardiac stent, HTN and Asthma was admitted with chest pain. EKG was negative for ischemic changes.Serial troponins were normal. Patient was evaluated by cardiology and underwent cardiac cath.Cardiac cath reveals patient mid LAD stent and 50 % stenosis of distal LAD. Metoprolol has been discontinued due to low blood pressure and due to H/O bronchial Asthma. Skin rash is due to Poison NICOLETTE , Patient was given education.Rash is better at that time of discharge.Topical Kalamine solution has been prescribed. Patient will be discharged home and will follow up with PCP and cardiology. 11/28/18 10:35
[2018-11-27 17:22] VITALS: BP 105/56
[2018-11-27 17:27] VITALS: PULSE 81; RESP 20; TEMP 98.1
--- NOTE | 2018-11-27 23:49 | CARD ---
APPROVED REPORT Date of service: 11/27/2018 EKG Measurement Heart [id number] <Conclusion> Normal sinus rhythm Normal ECG
== END 2018-11-27 19:14 | disposition home or self-care (01) ==
LOC: ED 20:11 → ERH 23:33 → 2RNO 11-26 14:21 → 2RSO 11-27 08:18
PROVIDERS: ADMIT Internal Medicine; ATTEND Internal Medicine
DX: I25.119 Atherosclerotic heart disease of native coronary artery with unspecified angina pectoris (principal); I10 Essential (primary) hypertension; J45.909 Unspecified asthma, uncomplicated; E78.5 Hyperlipidemia, unspecified; E78.00 Pure hypercholesterolemia, unspecified; L23.7 Allergic contact dermatitis due to plants, except food; I25.2 Old myocardial infarction; Z95.5 Presence of coronary angioplasty implant and graft; Z79.82 Long term (current) use of aspirin; Z88.8 Allergy status to other drugs, medicaments and biological substances
CPT/HCPCS: 71045; 80053; 80061; 81003; 82550; 83615; 83735; 84100; 84443; 84484; 85025; 85610; 85730; 93005; 93458; 94640; 96372; 96374; 96375; 96376; 97116; 97161; 99152; 99285; C1760; C1769; C2629; G0378; G8978; G8979; G8980; J1644; J1650; J1885; J2250; J2920; J2930; J3010; Q9966